=== PATIENT | male | born 1985 | race Caucasian/White ===

== ENCOUNTER → 2019-04-18 | Outpatient (CLI) | payer BC ==
--- NOTE | 2019-04-18 16:10 | Diagnostic Imaging Report ---
INDICATION: Right ankle injury FINDINGS: Three views of the right ankle show a small accessory ossicle at the tip of the medial malleolus. There is no fracture or dislocation. Ankle mortise is preserved. IMPRESSION: Negative right ankle. Dictated by: Dictated on workstation # [id number]
== END ==
LOC: RAD FS 14:43
PROVIDERS: ATTEND Nurse Practitioner
DX: S99.911A Unspecified injury of right ankle, initial encounter (principal)
CPT/HCPCS: 73610

== ENCOUNTER → 2019-09-23 | Outpatient (CLI) | payer BC ==
[2019-09-23 10:12] LABS: ALANINE AMINOTRANSFERASE 24 U/L (0-55); ALBUMIN 4.1 GM/DL (3.2-4.5); ALKALINE PHOSPHATASE 70 U/L (40-136); BILIRUBIN,TOTAL 0.5 MG/DL (0.1-1.0); BUN/CREATININE RATIO 18; CARBON DIOXIDE 25 MMOL/L (21-32); CHLORIDE 100 MMOL/L (98-107); CREATININE SERUM 0.94 MG/DL (0.60-1.30); GFR ESTIMATED > 60; GLUCOSE 130 MG/DL (70-105); POTASSIUM 4.5 MMOL/L (3.6-5.0); SODIUM 139 MMOL/L (135-145); TOTAL PROTEIN 7.8 GM/DL (6.4-8.2)
[2019-09-23 11:34] LABS: CHOLESTEROL 133 MG/DL (< 200); HDL CHOLESTEROL 27 MG/DL (40-60); TRIGLYCERIDES 227 MG/DL (<150); VLDL CHOLESTEROL 45 MG/DL (5-40)
== END ==
LOC: LAB FS 09:01
PROVIDERS: ATTEND Family Medicine
DX: Z00.00 Encounter for general adult medical examination without abnormal findings (principal)
CPT/HCPCS: 36415; 80053; 80061; 84443

== ENCOUNTER → 2021-01-31 | Outpatient (CLI) | payer BC ==
[2021-01-31 09:27] LABS: CALCIUM 8.6 MG/DL (8.5-10.1); CREATININE SERUM 0.84 MG/DL (0.60-1.30); POTASSIUM 4.4 MMOL/L (3.6-5.0)
[2021-01-31 09:28] LABS: BILIRUBIN,TOTAL 0.5 MG/DL (0.1-1.0); TOTAL PROTEIN 7.5 GM/DL (6.4-8.2)
== END ==
LOC: LAB FS 08:10
PROVIDERS: ATTEND Family Medicine
DX: Z00.00 Encounter for general adult medical examination without abnormal findings (principal); E03.9 Hypothyroidism, unspecified
CPT/HCPCS: 36415; 80053; 80061; 84443

== ENCOUNTER → 2021-02-01 | Outpatient (CLI) | payer BC | LOC: LAB FS 11:23 | PROVIDERS: ATTEND Family Medicine | DX: R73.9 Hyperglycemia, unspecified (principal) | CPT/HCPCS: 36415; 83036 ==

== ENCOUNTER → 2021-10-30 | Outpatient (CLI) | payer BC ==
[2021-10-30 12:27] LABS: CREATININE SERUM 0.82 MG/DL (0.60-1.30); POTASSIUM 4.1 MMOL/L (3.6-5.0)
[2021-10-30 12:28] LABS: ALBUMIN 4.2 GM/DL (3.2-4.5); BILIRUBIN,TOTAL 0.5 MG/DL (0.1-1.0); CALCIUM 9.4 MG/DL (8.5-10.1); TOTAL PROTEIN 7.7 GM/DL (6.4-8.2)
== END ==
LOC: LAB FS 11:29
PROVIDERS: ATTEND Family Medicine
DX: E11.9 Type 2 diabetes mellitus without complications (principal); E78.2 Mixed hyperlipidemia; E03.9 Hypothyroidism, unspecified; E66.01 Morbid (severe) obesity due to excess calories
CPT/HCPCS: 36415; 80053; 80061; 83036; 84443

== ENCOUNTER → 2022-04-17 | Outpatient (CLI) | payer BC ==
[2022-04-17 10:38] LABS: BILIRUBIN,TOTAL 0.4 MG/DL (0.1-1.0); CALCIUM 8.9 MG/DL (8.5-10.1); CREATININE SERUM 0.89 MG/DL (0.60-1.30); POTASSIUM 4.2 MMOL/L (3.6-5.0); TOTAL PROTEIN 7.5 GM/DL (6.4-8.2)
== END ==
LOC: LAB FS 08:02
PROVIDERS: ATTEND Family Medicine
DX: E11.9 Type 2 diabetes mellitus without complications (principal); F90.0 Attention-deficit hyperactivity disorder, predominantly inattentive type; E03.9 Hypothyroidism, unspecified; I10 Essential (primary) hypertension
CPT/HCPCS: 36415; 80053; 80061; 83036

== ENCOUNTER → 2022-08-22 | Outpatient (CLI) | payer BC ==
[~2022-08-22] MED LIST: CATHETER FLUSH 10 ML SYR IV PRN; HOLD METFORMIN - RECEIVED CONTRAST 20 ML VIAL IV SCH; IOHEXOL 350 MG/ML 100 ML (OMNIPAQUE 350) VIAL IV ONE; NS 100 ML (IVPB) BAG IV ONE
--- NOTE | 2022-08-22 15:47 | Diagnostic Imaging Report ---
CT ABDOMEN/PELVIS W TECHNIQUE: Multiple contiguous axial images were obtained through the abdomen and pelvis after administration of intravenous contrast. All CT scans use one or more of the following dose optimizing techniques: Automated exposure control, MA and/or KvP adjustment based on patient size and exam type or iterative reconstruction. INDICATION: Left lower quadrant pain. COMPARISON: None available. FINDINGS: Lower chest: The lung bases are clear. No pericardial or pleural effusion. Peritoneum: No free intraperitoneal air or fluid. Liver and biliary system: The liver is normal. Cholecystectomy. No biliary duct dilatation. Spleen and Pancreas: Spleen is normal. The pancreas enhances normally without mass lesion or peripancreatic inflammatory changes. Adrenals: Normal. tract: The kidneys enhance normally without suspicious mass or obstruction. Urinary bladder is distended without wall thickening. Prostate is not enlarged. GI tract: Stomach is decompressed. No bowel obstruction. No diverticulitis or colitis. Sigmoid colon diverticulosis is present. There is a 2 x 1 cm area of fat attenuation with a rim of soft tissue and mild surrounding inflammation in the left lower quadrant between the colon and anterior abdominal wall. This appearance is most compatible with a small area of omental infarct. Vasculature and Lymph nodes: Normal caliber aorta. No abdominal or pelvic lymphadenopathy. Musculoskeletal: No concerning osseous lesion. IMPRESSION: 1. 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 This is idiopathic phenomenon and frequently associated with obesity. It can be a source of pain in general response to pain control with anti-inflammatories. 2. No diverticulitis or colitis. Dictated by: Dictated on workstation # [id number]
== END ==
LOC: RAD FS 14:10
PROVIDERS: ATTEND Registered Nurse Emergency
DX: R10.32 Left lower quadrant pain (principal)
CPT/HCPCS: 74177; Q9967

== ENCOUNTER 2022-10-09 07:05 | Day surgery (SDC) | payer BC ==
[~2022-10-09] VITALS: Ht 175 cm; Wt 145.0 kg
[2022-10-09] VITALS (12 sets, daily range): BP systolic 112–131; BP diastolic 50–82
[2022-10-09] MEDS ORDERED: NS IV 1000 ML 1,000 ML IV STA (07:16)
[2022-10-09] MEDS ORDERED: fentaNYL INJ 100 MCG/2 ML AMP IVP STA (07:16)
--- NOTE | 2022-10-09 07:16 | ED Abdominal Pain ---
General Stated Complaint: ABD PAIN YESTERDAY History of Present Illness Date Seen by Provider: Oct 09, 2022 Time Seen by Provider: 07:14 Initial Comments 37-year-old male presents with abdominal pain. Pain started yesterday morning around 3 AM had a couple episodes of vomiting. The pain yesterday was more tender periumbilical mid abdomen but then throughout the the day especially throughout the night last night and this morning is moved to the right lower quadrant. Reports that hurts if he walks, hits a bump driving or even taking a deep breath. No fevers, chills or diarrhea reported. Allergies and Home Medications Allergies Coded Allergies: No Known Drug Allergies (Unverified , 08/22/22) Patient Home Medication List Home Medication List Reviewed: Yes Review of Systems Review of Systems Constitutional: No chills EENTM: No Symptoms Reported Cardiovascular: No Symptoms Reported Gastrointestinal: Abdominal Pain, Nausea, Vomiting Genitourinary: No Symptoms Reported Musculoskeletal: no symptoms reported Skin: no symptoms reported Psychiatric/Neurological: No Symptoms Reported Physical Exam Vital Signs Vital Signs - First Documented 10/09/22 07:17 Temp 36.5 Pulse 114 Resp 16 B/P (MAP) 144/86 (105) Pulse Ox 100 O2 Delivery Room Air Capillary Refill : Height/Weight/BMI Height: '" Weight: lbs. oz. kg; BMI Method: General Appearance: WD/WN, no apparent distress Respiratory: lungs clear, normal breath sounds Cardiovascular: normal peripheral pulses, regular rate, rhythm Gastrointestinal: soft; No distended; rebound, tenderness Extremities: non-tender, normal inspection Neurologic/Psychiatric: alert, normal mood/affect, oriented x 3 Skin: normal color, warm/dry Progress/Results/Core Measures Results/Orders Lab Results Laboratory Tests Test 10/09/22 07:17 10/09/22 07:29 Range/Units White Blood Count 12.2 H 4.3-11.0 10^3/uL Red Blood Count 5.72 H 4.30-5.52 10^6/uL Hemoglobin 16.2 13.3-17.7 g/dL Hematocrit 49 40-54 % Mean Corpuscular Volume 85 80-99 fL Mean Corpuscular Hemoglobin 28 25-34 pg Mean Corpuscular Hemoglobin Concent 33 32-36 g/dL Red Cell Distribution Width 12.9 10.0-14.5 % Platelet Count 294 130-400 10^3/uL Mean Platelet Volume 8.8 L 9.0-12.2 fL Immature Granulocyte % (Auto) 0 % Neutrophils (%) (Auto) 77 H 42-75 % Lymphocytes (%) (Auto) 12 12-44 % Monocytes (%) (Auto) 10 0-12 % Eosinophils (%) (Auto) 0 0-10 % Basophils (%) (Auto) 0 0-10 % Neutrophils # (Auto) 9.3 H 1.8-7.8 10^3/uL Lymphocytes # (Auto) 1.5 1.0-4.0 10^3/uL Monocytes # (Auto) 1.3 H 0.0-1.0 10^3/uL Eosinophils # (Auto) 0.1 0.0-0.3 10^3/uL Basophils # (Auto) 0.0 0.0-0.1 10^3/uL Immature Granulocyte # (Auto) 0.1 0.0-0.1 10^3/uL Sodium Level 135 135-145 MMOL/L Potassium Level 4.1 3.6-5.0 MMOL/L Chloride Level 98 98-107 MMOL/L Carbon Dioxide Level 25 21-32 MMOL/L Anion Gap 12 5-14 MMOL/L Blood Urea Nitrogen 10 7-18 MG/DL Creatinine 0.90 0.60-1.30 MG/DL Estimat Glomerular Filtration Rate 114 BUN/Creatinine Ratio 11 Glucose Level 144 H 70-105 MG/DL Calcium Level 9.2 8.5-10.1 MG/DL Corrected Calcium 9.0 8.5-10.1 MG/DL Total Bilirubin 1.2 H 0.1-1.0 MG/DL Aspartate Amino Transf (AST/SGOT) 19 5-34 U/L Alanine Aminotransferase (ALT/SGPT) 26 0-55 U/L Alkaline Phosphatase 57 40-136 U/L C-Reactive Protein 3.85 H <0.50 MG/DL Total Protein 8.1 6.4-8.2 GM/DL Albumin 4.3 3.2-4.5 GM/DL Urine Color YELLOW Urine Clarity CLEAR Urine pH 5.5 5-9 Urine Specific [place] 1.025 H 1.016-1.022 Urine Protein NEGATIVE NEGATIVE Urine Glucose (UA) 3+ H NEGATIVE Urine Ketones TRACE H NEGATIVE Urine Nitrite NEGATIVE NEGATIVE Urine Bilirubin NEGATIVE NEGATIVE Urine Urobilinogen 0.2 < = 1.0 MG/DL Urine Leukocyte Esterase NEGATIVE NEGATIVE Urine RBC (Auto) NEGATIVE NEGATIVE Urine RBC NONE /HPF Urine WBC RARE /HPF Urine Squamous Epithelial Cells 0-2 /HPF Urine Crystals NONE /LPF Urine Bacteria TRACE /HPF Urine Casts NONE /LPF Urine Mucus SMALL H /LPF Urine Culture Indicated NO My Orders Orders - EVANS,ANUSHKA L DO Cbc With Automated Diff (10/09/22 07:16) Comprehensive Metabolic Panel (10/09/22 07:16) Ua Culture If Indicated (10/09/22 07:16) Crp Fs (10/09/22 07:16) Ct Abdomen/Pelvis W (10/09/22 07:16) Ondansetron Injection (Zofran Injectio (10/09/22 07:30) Ns Iv 1000 Ml (Sodium Chloride 0.9%) (10/09/22 07:16) Fentanyl Inj (Sublimaze Injection) (10/09/22 07:16) Iohexol Injection (Omnipaque 350 Mg/Ml 1 (10/09/22 08:00) Received Contrast (Hold Metformin- Contr (10/09/22 08:00) Iohexol Injection (Omnipaque 350 Mg/Ml 1 (10/09/22 08:00) Received Contrast (Hold Metformin- Contr (10/09/22 08:00) Ns (Ivpb) (Sodium Chloride 0.9% Ivpb Bag (10/09/22 08:00) Medications Given in ED Current Medications Medications Dose Ordered Sig/Renaldo Route Start Time Stop Time Status Last Admin Dose Admin Iohexol 100 ml ONCE ONCE IV 10/09/22 08:00 10/09/22 08:01 DC 10/09/22 08:00 100 ML Ondansetron HCl 4 mg ONCE ONCE IVP 10/09/22 07:30 10/09/22 07:31 DC 10/09/22 07:25 4 MG Sodium Chloride 100 ml ONCE ONCE IV 10/09/22 08:00 10/09/22 08:01 DC 10/09/22 08:02 100 ML Vital Signs/I&O 10/09/22 07:17 Temp 36.5 Pulse 114 Resp 16 B/P (MAP) 144/86 (105) Pulse Ox 100 O2 Delivery Room Air Progress Progress Note : Progress Note Diagnostic studies were ordered reviewed and interpreted by me. Patient's labs shows elevated white count elevated CRP. Patient's CT exam was reviewed with initial interpretation of an acute appendicitis by me. Final interpretation per radiology report. Called and discussed patient's labs and radiology findings with Dr. Calle, general surgery. Patient to be transferred to [facility] same-day surgery for definitive care. Patient will go via private vehicle. Diagnostic Imaging Diagonstic Imaging: CT Plain Films/CT/US/NM/MRI: abdomen, pelvis Comments Date of Exam:10/09/22 CT ABDOMEN/PELVIS W INDICATION: Right lower quadrant abdominal pain TECHNIQUE: Multiple contiguous axial images were obtained through the abdomen and pelvis after administration of intravenous contrast. Auto Exposure Controls were utilized during the CT exam to meet ALARA standards for radiation dose reduction. All CT scans use one or more of the following dose optimizing techniques: automated exposure control, MA and/or KvP adjustment based on patient size and exam type or iterative reconstruction. Comparison made to 08/22/2022. The visualized portions of the lung bases are clear. There were no pleural fluid collections. There is no free intraperitoneal air. The liver shows mild low-density change compatible with fatty infiltration. There is no focal liver lesion. Gallbladder is surgically absent. There is no biliary dilatation. The spleen, adrenals, and pancreas are normal. Kidneys bilaterally are unremarkable. There is no retroperitoneal mass or adenopathy. There is no ascites or abscess. There are a few uncomplicated colonic diverticuli. Previous area of edema in the left lower quadrant omentum seen on 08/22/2022 has resolved. There is thickening and dilatation of the appendix with fat stranding in the periappendiceal fat, compatible with acute appendicitis. The appendix measures about 1.3 cm in diameter. There is edema in the periappendiceal fat but no evidence of discrete abscess. Impression: Findings compatible with acute appendicitis with thickened appendix with edema in the periappendiceal fat. There is no discrete abscess. Incidental finding of fatty infiltration of liver. There is postoperative change with prior cholecystectomy. Reviewed: Reviewed by Me (Acute appendicitis), Reviewed/Discussed Departure Impression Primary Impression: Appendicitis Qualified Codes: K35.30 - Acute appendicitis with localized peritonitis, without perforation or gangrene Disposition: 30 STILL A PATIENT Condition: Stable Admissions Decision to Admit Reason: Admit from ER (General) Decision to Admit/Date: Oct 09, 2022 Time/Decision to Admit Time: 08:16 Departure-Patient Inst. Referrals: JUANA ABDALLA MD (PCP) Primary Care Physician ANUSHKA EVANS DO Oct 09, 2022 07:16
[2022-10-09 07:28] LABS: BASOPHILS % (AUTO) 0 % (0-10); EOSINOPHILS # (AUTO) 0.1 10^3/uL (0.0-0.3); EOSINOPHILS % (AUTO) 0 % (0-10); HEMATOCRIT 49 % (40-54); HEMOGLOBIN 16.2 g/dL (13.3-17.7); LYMPHOCYTES # (AUTO) 1.5 10^3/uL (1.0-4.0); LYMPHOCYTES % (AUTO) 12 % (12-44); MEAN CORPUSCULAR HEMOGLOBIN 28 pg (25-34); MEAN CORPUSCULAR HGB CONC 33 g/dL (32-36); MEAN CORPUSCULAR VOLUME 85 fL (80-99); MEAN PLATELET VOLUME 8.8 fL (9.0-12.2); MONOCYTES # (AUTO) 1.3 10^3/uL (0.0-1.0); MONOCYTES % (AUTO) 10 % (0-12); NEUTROPHILS # (AUTO) 9.3 10^3/uL (1.8-7.8); NEUTROPHILS % (AUTO) 77 % (42-75); PLATELET COUNT 294 10^3/uL (130-400); WHITE BLOOD COUNT 12.2 10^3/uL (4.3-11.0)
[2022-10-09] MEDS ORDERED: ONDANSETRON 4 MG/2 ML (SDV) Z0FRAN IVP ONE (07:30)
[2022-10-09 07:34] LABS: BILIRUBIN,URINE NEGATIVE (NEGATIVE); CLARITY,URINE CLEAR; COLOR,URINE YELLOW; GLUCOSE, URINE (UA) 3+ (NEGATIVE); KETONES,URINE TRACE (NEGATIVE); LEUKOCYTE ESTERASE ,URINE NEGATIVE (NEGATIVE); NITRITE,URINE NEGATIVE (NEGATIVE); PH,URINE 5.5 (5-9); PROTEIN,URINE NEGATIVE (NEGATIVE)
[2022-10-09 07:41] LABS: BACTERIA,URINE TRACE /HPF; SQUAMOUS EPITHELIAL CELL,UR 0-2 /HPF; WBC,URINE RARE /HPF
[2022-10-09 07:48] LABS: ALBUMIN 4.3 GM/DL (3.2-4.5); BILIRUBIN,TOTAL 1.2 MG/DL (0.1-1.0); CALCIUM 9.2 MG/DL (8.5-10.1); CREATININE SERUM 0.9 MG/DL (0.60-1.30); POTASSIUM 4.1 MMOL/L (3.6-5.0); TOTAL PROTEIN 8.1 GM/DL (6.4-8.2)
[2022-10-09] MEDS ORDERED: IOHEXOL 350 MG/ML 100 ML (OMNIPAQUE 350) VIAL IV ONE ×2 (08:00)
[2022-10-09] MEDS ORDERED: NS 100 ML (IVPB) BAG IV ONE (08:00)
[2022-10-09] MEDS ORDERED: HOLD METFORMIN - RECEIVED CONTRAST 20 ML VIAL IV SCH ×2 (08:00)
--- NOTE | 2022-10-09 08:32 | Diagnostic Imaging Report ---
INDICATION: Right lower quadrant abdominal pain TECHNIQUE: Multiple contiguous axial images were obtained through the abdomen and pelvis after administration of intravenous contrast. Auto Exposure Controls were utilized during the CT exam to meet ALARA standards for radiation dose reduction. All CT scans use one or more of the following dose optimizing techniques: automated exposure control, MA and/or KvP adjustment based on patient size and exam type or iterative reconstruction. Comparison made to 08/22/2022. The visualized portions of the lung bases are clear. There were no pleural fluid collections. There is no free intraperitoneal air. The liver shows mild low-density change compatible with fatty infiltration. There is no focal liver lesion. Gallbladder is surgically absent. There is no biliary dilatation. The spleen, adrenals, and pancreas are normal. Kidneys bilaterally are unremarkable. There is no retroperitoneal mass or adenopathy. There is no ascites or abscess. There are a few uncomplicated colonic diverticuli. Previous area of edema in the left lower quadrant omentum seen on 08/22/2022 has resolved. There is thickening and dilatation of the appendix with fat stranding in the periappendiceal fat, compatible with acute appendicitis. The appendix measures about 1.3 cm in diameter. There is edema in the periappendiceal fat but no evidence of discrete abscess. Impression: Findings compatible with acute appendicitis with thickened appendix with edema in the periappendiceal fat. There is no discrete abscess. Incidental finding of fatty infiltration of liver. There is postoperative change with prior cholecystectomy. Dictated by: Dictated on workstation # [id number]
[2022-10-09] MEDS ORDERED: LIDOCAINE/EPI 1%-1:100,000 (XYLOCAINE) 20ML ONE (09:29)
--- NOTE | 2022-10-09 09:47 | Consultation - Surgery ---
RYNE LUGO 10/09/22 0947: History of Present Illness History of Present Illness Patient Consulted On(jose/time) 10/09/22 09:40 Date Seen by Provider: Oct 09, 2022 Time Seen by Provider: 09:40 Reason for Visit: Appendicitis History of Present Illness Patient is a 37-year-old male with a history of non-insulin dependent T2DM, HTN, and hypothyroidism who presented initially to the ED in [place] with CC of abdominal pain this morning at approximately 7:00. The patient states that his pain started at 3:00 AM yesterday, and started as a mild periumbilical ache. He reports that around noon this pain shifted into the RUQ and felt more like a sharp stabbing pain. Throughout today and yesterday the patient reports having nausea and occasional vomiting, he is not currently having any nausea. After his symptoms continued to worsen, the patient decided to go to the [place] ED, where CT revealed that he had acute appendicits. The patient was then transferred to [facility] same day surgery for a laparascopic appendectomy scheduled for today. Allergies and Home Medications Allergies Coded Allergies: No Known Drug Allergies (Unverified , 08/22/22) Patient Home Medication List Home Medication List Reviewed: Yes Past Jtjbntl-Bxhoch-Ejvksr Hx Patient Social History Smoking Status: Never a Smoker Alcohol Use?: Yes (states maybe 1 drink a week) Have you traveled recently?: No Surgeries History of Surgeries: Yes Surgeries: Gallbladder, Vasectomy Respiratory History of Respiratory Disorde: No Cardiovascular History of Cardiac Disorders: Yes Cardiac Disorders: Hypertension Neurological History of Neurological Disord: No Genitourinary History of Genitourinary Disor: No Gastrointestinal History of Gastrointestinal Di: No Musculoskeletal History of Musculoskeletal Dis: No Endocrine History of Endocrine Disorders: Yes Endocrine Disorders: Hypothyroidsim, Diabetes, Non-Insulin dep HEENT History of HEENT Disorders: No Cancer History of Cancer: No Psychosocial History of Psychiatric Problem: Yes Behavioral Health Disorders: ADD/ADHD Integumentary History of Skin or Integumenta: No Blood Transfusions History of Blood Disorders: No Family Medical History Significant Family History: No Pertinent Family Hx Family Medial History: Cardiovascular disease 19 FATHER 19 MOTHER Diabetes mellitus 19 FATHER 19 MOTHER Review of Systems-General Constitutional: No chills, No fever EENTM: No hearing loss, No blurred vision Respiratory: No cough, No short of breath Cardiovascular: No chest pain, No palpitations Gastrointestinal: RLQ, abdominal pain (RLQ), nausea (Currently controlled) Genitourinary: No dysuria, No hematuria Musculoskeletal: No back pain, No neck pain Skin: No change in color, No change in hair/nails Psychiatric/Neurological: Denies Numbness, Denies Weakness Physical Exam-General Problems Physical Exam Vital Signs Vital Signs - First Documented 10/09/22 07:17 Temp 36.5 Pulse 114 Resp 16 B/P (MAP) 144/86 (105) Pulse Ox 100 O2 Delivery Room Air Capillary Refill : Less Than 3 Seconds General Appearance: WD/WN, no apparent distress, obese Eyes: Bilateral Eye PERRL, Bilateral Eye EOMI HEENT: PERRL/EOMI Neck: non-tender, supple Respiratory: chest non-tender, lungs clear, normal breath sounds, no respiratory distress, no accessory muscle use Cardiovascular: normal peripheral pulses, regular rate, rhythm, no edema, no murmur Gastrointestinal: soft, no organomegaly, tenderness (RLQ) Rectal: deferred Back: no CVA tenderness, no vertebral tenderness Extremities: non-tender, no pedal edema, no calf tenderness, normal capillary refill Neurologic/Psychiatric: alert, normal mood/affect, oriented x 3 Skin: normal color, warm/dry Lymphatic: no adenopathy (cervical) Data Review Labs Laboratory Tests 10/09/22 07:17: White Blood Count 12.2H, Red Blood Count 5.72H, Hemoglobin 16.2, Hematocrit 49, Mean Corpuscular Volume 85, Mean Corpuscular Hemoglobin 28, Mean Corpuscular Hemoglobin Concent 33, Red Cell Distribution Width 12.9, Platelet Count 294, Mean Platelet Volume 8.8L, Immature Granulocyte % (Auto) 0, Neutrophils (%) (Auto) 77H, Lymphocytes (%) (Auto) 12, Monocytes (%) (Auto) 10, Eosinophils (%) (Auto) 0, Basophils (%) (Auto) 0, Neutrophils # (Auto) 9.3H, Lymphocytes # (Auto) 1.5, Monocytes # (Auto) 1.3H, Eosinophils # (Auto) 0.1, Basophils # (Auto) 0.0, Immature Granulocyte # (Auto) 0.1, Sodium Level 135, Potassium Level 4.1, Chloride Level 98, Carbon Dioxide Level 25, Anion Gap 12, Blood Urea Nitrogen 10, Creatinine 0.90, Estimat Glomerular Filtration Rate 114, BUN/Creatinine Ratio 11, Glucose Level 144H, Calcium Level 9.2, Corrected Calcium 9.0, Total Bilirubin 1.2H, Aspartate Amino Transf (AST/SGOT) 19, Alanine Aminotransferase (ALT/SGPT) 26, Alkaline Phosphatase 57, C-Reactive Protein 3.85H, Total Protein 8.1, Albumin 4.3 10/09/22 07:29: Urine Color YELLOW, Urine Clarity CLEAR, Urine pH 5.5, Urine Specific [place] 1.025H, Urine Protein NEGATIVE, Urine Glucose (UA) 3+H, Urine Ketones TRACEH, Urine Nitrite NEGATIVE, Urine Bilirubin NEGATIVE, Urine Urobilinogen 0.2, Urine Leukocyte Esterase NEGATIVE, Urine RBC (Auto) NEGATIVE, Urine RBC NONE, Urine WBC RARE, Urine Squamous Epithelial Cells 0-2, Urine Crystals NONE, Urine Bacteria TRACE, Urine Casts NONE, Urine Mucus SMALLH, Urine Culture Indicated NO 10/09/22 09:36: Glucometer 145H Assessment/Plan Assessment/Plan Assessment/Plan Appendicitis Patient is scheduled to undergo laparascopic appendectomy today Currently NPO Continue pain management Obesity: counseled on benefits of weight loss ROXANA PACK DO 10/09/22 1012: History of Present Illness History of Present Illness Time Seen by Provider: 09:31 History of Present Illness Surgery asked to consult regarding appendicitis. Pts states pat started at 3am yesterday, in the umbilical area and then by noon yesterday had moved down into the RLQ. Pain is ok now, controlled. Allergies and Home Medications Allergies Coded Allergies: No Known Drug Allergies (Unverified , 08/22/22) Patient Home Medication List Home Medication List Reviewed: Yes Past Aprfnqg-Ljmjcc-Ntxnpx Hx Patient Social History Smoking Status: Never a Smoker Alcohol Use?: Yes (states maybe 1 drink a week) Surgeries History of Surgeries: Yes Surgeries: Gallbladder, Vasectomy Respiratory History of Respiratory Disorde: No Cardiovascular History of Cardiac Disorders: Yes Cardiac Disorders: Hypertension Neurological History of Neurological Disord: No Genitourinary History of Genitourinary Disor: No Gastrointestinal History of Gastrointestinal Di: No Musculoskeletal History of Musculoskeletal Dis: No Endocrine History of Endocrine Disorders: Yes Endocrine Disorders: Hypothyroidsim, Diabetes, Non-Insulin dep HEENT History of HEENT Disorders: No Cancer History of Cancer: No Psychosocial History of Psychiatric Problem: Yes Behavioral Health Disorders: ADD/ADHD Integumentary History of Skin or Integumenta: No Blood Transfusions History of Blood Disorders: No Family Medical History Significant Family History: Diabetes, Hypertension Family Medial History: Cardiovascular disease 19 FATHER 19 MOTHER Diabetes mellitus 19 FATHER 19 MOTHER Review of Systems-General Constitutional: No chills, No fever EENTM: No hearing loss, No blurred vision Respiratory: No cough, No short of breath Cardiovascular: No chest pain, No palpitations Gastrointestinal: RLQ, abdominal pain (RLQ), nausea (Currently controlled); No vomiting Genitourinary: No dysuria, No hematuria Musculoskeletal: No back pain, No neck pain Skin: No change in color, No change in hair/nails Psychiatric/Neurological: Denies Numbness, Denies Weakness Physical Exam-General Problems Physical Exam General Appearance: no apparent distress, obese Eyes: Bilateral Eye PERRL, Bilateral Eye EOMI HEENT: pharynx normal; No scleral icterus (R), No scleral icterus (L) Neck: non-tender, supple Respiratory: chest non-tender, lungs clear, normal breath sounds, no respiratory distress, no accessory muscle use Cardiovascular: regular rate, rhythm, no murmur Gastrointestinal: soft, no organomegaly, tenderness (RLQ), hernia (small umbilical) Rectal: deferred Back: no CVA tenderness, no vertebral tenderness Extremities: non-tender, no pedal edema, no calf tenderness, normal capillary refill Neurologic/Psychiatric: alert, normal mood/affect, oriented x 3 Skin: normal color, warm/dry Lymphatic: no adenopathy (neck, axilla or groin) Data Review Radiology Date of Exam:10/09/22 CT ABDOMEN/PELVIS W INDICATION: Right lower quadrant abdominal pain TECHNIQUE: Multiple contiguous axial images were obtained through the abdomen and pelvis after administration of intravenous contrast. Auto Exposure Controls were utilized during the CT exam to meet ALARA standards for radiation dose reduction. All CT scans use one or more of the following dose optimizing techniques: automated exposure control, MA and/or KvP adjustment based on patient size and exam type or iterative reconstruction. Comparison made to 08/22/2022. The visualized portions of the lung bases are clear. There were no pleural fluid collections. There is no free intraperitoneal air. The liver shows mild low-density change compatible with fatty infiltration. There is no focal liver lesion. Gallbladder is surgically absent. There is no biliary dilatation. The spleen, adrenals, and pancreas are normal. Kidneys bilaterally are unremarkable. There is no retroperitoneal mass or adenopathy. There is no ascites or abscess. There are a few uncomplicated colonic diverticuli. Previous area of edema in the left lower quadrant omentum seen on 08/22/2022 has resolved. There is thickening and dilatation of the appendix with fat stranding in the periappendiceal fat, compatible with acute appendicitis. The appendix measures about 1.3 cm in diameter. There is edema in the periappendiceal fat but no evidence of discrete abscess. Impression: Findings compatible with acute appendicitis with thickened appendix with edema in the periappendiceal fat. There is no discrete abscess. Incidental finding of fatty infiltration of liver. There is postoperative change with prior cholecystectomy. Dictated by: Dictated on workstation # [id number] Dict: 10/09/22 0809 Trans: 10/09/22 0859 [facility] [id number] Interpreted by: WILBERT SILVA MD Electronically signed by: WILBERT SILVA MD 10/09/22 0859 Assessment/Plan Assessment/Plan Assessment/Plan Acute appendicitis I reviewed the CT myself and discussed case with Dr. Dill. Pt has appendicitis and needs an appendectomy. I talked to pt regarding the procedure and went over risks and complications; not limited to pain, bleeding, infection, scar, damage to bowel and need for further procedure. All questions answered to pt and his 's satisfaction. IV fluids, will get preop ABX. Supervisory-Addendum Brief Verification & Attestation Participated in pt care: history, MDM, physical Personally performed: exam, history, MDM, supervision of care Care discussed with: Medical Student Procedures: n/a Verification and Attestation of Medical Student E/M Service A medical student performed and documented this service. I then reviewed and verified all information documented by the medical student and made modifications to such information, when appropriate. I personally performed a physical exam, medical decision making and then discussed any differences between the notes and made revisions as necessary to create one note. Roxana Pack , 10/09/22 , 10:12 RYNE LUGO Oct 09, 2022 09:47 ROXANA PACK DO Oct 09, 2022 10:12
[2022-10-09] MEDS ORDERED: MIDAZOLAM 2 MG/2 ML (VERSED) VIAL ONE (10:03)
[2022-10-09] MEDS ORDERED: ONDANSETRON 4 MG/2 ML (SDV) Z0FRAN ONE (10:03)
[2022-10-09] MEDS ORDERED: GLYCOPYRROLATE 0.2 MG/ML (ROBINUL) 2 ML VIAL ONE (10:03)
[2022-10-09] MEDS ORDERED: LIDOCAINE PF 2% 5 ML (XYLOCAINE) VIAL ONE (10:03)
[2022-10-09] MEDS ORDERED: fentaNYL INJ 100 MCG/2 ML AMP ONE ×2 (10:03→11:13)
[2022-10-09] MEDS ORDERED: proPOfol 200 MG/20 ML (DIPRIVAN) VIAL IV ONE (10:03)
[2022-10-09] MEDS ORDERED: NEOSTIGMINE (BLOXIVERZ ) 1 MG/1ML 10 ML VIAL ONE (10:05)
[2022-10-09] MEDS ORDERED: ROCURONIUM 50 MG/5 ML (ZEMURON) VIAL IV ONE (10:05)
[2022-10-09] MEDS ORDERED: LACTATED RINGERS 1,000 ML IV PRN (10:15)
[2022-10-09] MEDS ORDERED: ceFAZolin INJECTION 3,000 MG in NS (IVPB) 100 ML IV ONE (10:15)
--- NOTE | 2022-10-09 11:07 | Progress Note-Post Operative ---
Post-Operative Progess Note Surgeon (s)/Slackman (s) Surgeon ROXANA PACK DO Slackman: PRETTY Orellana Pre-Operative Diagnosis Acute appy Post-Operative Diagnosis same Procedure & Operative Findings Date of Procedure 10/09/22 Procedure Performed/Findings PROCEDURE: Laparoscopic appendectomy. COMPLICATIONS: None. INDICATIONS: The patient is a 37 year old male who has been having right lower quadrant abdominal pain. Patient's exam consistent with appendicitis. I discussed risk and benefits of laparoscopic appendectomy and all indicated procedures with the possibility being a normal appendix. The patient understands the risks and benefits and wishes to proceed. Consent was signed on the chart. DESCRIPTION OF PROCEDURE: The patient was taken to the operating suite, prepped and draped in a sterile fashion. Timeout was performed. Local anesthetic was infiltrated just above the umbilicus and 11- blade scalpel was used to make a skin incision. Cautery was used to dissect down to the fascia and scored. Kochers were used to grasp and elevate it and the abdomen was then entered. A 0 Vicryl was placed in a figure- of-eight fashion for closure at the end of the case. The balloon trocar was inserted into the abdomen and pneumoperitoneum was achieved. Under direct visualization of the laparoscope, a 5 mm trocar was placed in the suprapubic region and a 5 mm trocar was placed in the left lower quadrant. Appendix was located, inflamed but not perforated. Using the Ligasure to come across the mesoappendix and the appendiceal artery until appendix was only attached to the cecum. Could see it was well away fromt the terminal ileum. Once at the base an Endo-SALLY 2.5 stapler was then fired across the base and it was then placed in an Endobag and removed through the 12 mm trocar site. The abdomen was then irrigated and suctioned. No other pathology noted. The abdomen was then desufflated and the trocars were removed. The 0 Vicryl placed at the beginning of the case was then tied closing the 12 mm fascial defect. The skin was then closed using 4-0 Monocryl in a subcut icular fashion. The abdomen was then washed and dried and Skin Affix was placed over the incisions. The patient tolerated the procedure well without any complications and was taken to the recovery room in stable condition. Anesthesia Type GET Estimated Blood Loss Estimated blood loss (mL): scant Specimens/Packing Specimens Removed ROXANA Navarrete DO Oct 09, 2022 11:07
[2022-10-09] MEDS ORDERED: ACHYD1T PO (11:08)
--- NOTE | 2022-10-09 11:10 | Discharge Inst-Surgical ---
Discharge Inst-Surgical Depart Medication/Instructions New, Converted or Re-Newed RX: Transmitted to Pharmacy Patient Instructions Follow up Appt: Make appointment for 1 week. [phone] Instructions: No lifting greater than 20 pounds. No strenuous activity. May shower in 24 hours, no tub bath or soaking. Use incentive spirometer at home as directed. No Smoking Skin/Wound Care: May remove bandages in am. You need to leave the Dermabond on incision it will fall off on it's own. Symptoms to Report: Appetite Changes, Extremity Discoloration, Numbness/Tingling, Swelling Increased, Bleeding Excessive, Eyesight Changes, Pain Increased, Urine Color Change, Constipation(Persistent), Fever over 101 degree F, Pain/Pressure in chest, Urinating Difficulty, Cough Up/Vomit Blood, Heart Beat Irreg/Pounding, Pain/Pressure in jaw, Cramps in feet or legs, Lightheadedness, Pain/Pressure in shoulder, Diarrhea(Persistent), Memory Changes Suddenly, Questions/Concerns, Weight gain consecutive days, Dizziness/Fainting, Nausea/Vomiting, Shortness of Breath, Weight gain over 2 pounds If questions or concerns contact your physician Or seek help at emergency department. Activity Activity as Tolerated: Yes Activity Instructions: Avoid Stress to Incision Driving Instructions: No Driving/Refer to (while taking pain meds and if can't complete all actions required to drive (braking and swerving)) Diet Discharge Diet: No Restrictions Diet After 24 Hours: Clear Liquid if Nauseous If Any Problems/Questions/Issu: Contact Your Physician, Go to Emergency Room Skin/Wound Care Infection Signs and Symptoms: Increased Redness, Foul Odor of Wound, Increased Drainage, Skin Itchy or Has a Rash, Increased Swelling, Temperature Above 101 F Wound Care Comment: heating pad to shoulder or neck tonight for pain Bathing Instructions: Shower Stitches/Nicky/Dermabond Dis: Dermabond Ice Pack: Ice On and Off Site ROXANA PACK DO Oct 09, 2022 11:09
[2022-10-09] MEDS ORDERED: morphine INJ 10 MG/ML 1ML (SYR OR VIAL) IVP ONE (11:30)
[2022-10-09] MEDS ORDERED: ONDANSETRON 4 MG/2 ML (SDV) Z0FRAN IVP PRN (11:30)
[2022-10-09] MEDS ORDERED: HYDROmorphone 2 MG/ML VIAL (DILAUDID) IV ONE (11:30)
[2022-10-09] MEDS ORDERED: METF-399 PO (11:55)
[2022-10-09] MEDS ORDERED: HYDR25TA4 PO (11:57)
[2022-10-09] MEDS ORDERED: LEVO13CA4 PO (11:57)
[2022-10-09] MEDS ORDERED: EMPA10TA PO (11:57)
--- NOTE | 2022-10-09 12:32 | Anesthesia-General Post-Op ---
General Patient Condition Mental Status/LOC: Same as Preop Cardiovascular: Satisfactory Nausea/Vomiting: Absent Respiratory: Satisfactory Pain: Controlled Complications: Absent Post Op Complications Complications None Follow Up Care/Instructions Patient Instructions None needed. Anesthesia/Patient Condition Patient Condition Patient is doing well, no complaints, stable vital signs, no apparent adverse anesthesia problems. No complications reported per nursing. YOLI LACKEY DO Oct 09, 2022 12:32
== END 2022-10-09 13:30 | disposition home or self-care (01) ==
LOC: EDUNIT# 07:05 → ER FS 07:08 → SDC 09:21
PROVIDERS: ATTEND Surgery
DX: K35.80 Unspecified acute appendicitis (principal); E66.01 Morbid (severe) obesity due to excess calories; Z68.42 Body mass index [BMI] 45.0-49.9, adult; E11.9 Type 2 diabetes mellitus without complications; Z79.84 Long term (current) use of oral hypoglycemic drugs; Z28.310 Unvaccinated for COVID-19
CPT/HCPCS: 36415; 74177; 80053; 81000; 82947; 85025; 86141; 87081; 96361; 96374; 96375

== ENCOUNTER 2023-05-10 23:16 | Emergency (ER) | payer BC ==
[~2023-05-10] VITALS: Ht 177.8 cm; Wt 149.7 kg
[~2023-05-10 23:16] MED LIST changes: +ACHYD1T PO; -CATHETER FLUSH 10 ML SYR IV PRN; +EMPA10TA PO; -HOLD METFORMIN - RECEIVED CONTRAST 20 ML VIAL IV SCH; +HYDR25TA4 PO; -IOHEXOL 350 MG/ML 100 ML (OMNIPAQUE 350) VIAL IV ONE; +LEVO13CA4 PO; +METF-399 PO; -NS 100 ML (IVPB) BAG IV ONE
--- NOTE | 2023-05-10 23:38 | ED Cardiac General ---
History of Present Illness General Stated Complaint: ANXIETY Source: patient History of Present Illness Date Seen by Provider: May 10, 2023 Time Seen by Provider: 23:21 Initial Comments 38-year-old male presenting with complaints of heart palpitations. He states that earlier this evening he was just sitting at the computer and felt like his heart started racing. When he looked down at his chest he could see his heart thumping against his chest. He felt like his heart was going very fast. This lasted for few seconds. He had another episode when he was laying down in bed. He became more concerned and woke up his significant other to come to the emergency department. He is overweight and has high blood pressure and diabetes as well as ADHD. He denies having a headache or any chest pain. He has had some mild nausea. He denies any actual vomiting. He has a family history of cardiac disease and was concerned that he had something going on with his heart. Timing/Duration: 1-3 hours Severity: moderate Prior CP/Workup: no prior chest pain, no prior cardiac workup NTG SL CUSTODIAL WORKER: No ASA po CUSTODIAL WORKER: No Associated Systoms: No Chest Pain, No Cough, No Diaphoresis, No Fever/Chills, No Headaches, No Loss of Appetite, No Malaise; Nausea/Vomiting (Nausea but no vomiting); No Rash, No Seizure, No Shortness of Air, No Syncope, No Weakness Allergies and Home Medications Allergies Coded Allergies: No Known Drug Allergies (Unverified , 08/22/22) Patient Home Medication List Home Medication List Reviewed: Yes Empagliflozin (Jardiance) Unknown Strength Tablet, Unknown Dose PO, (Reported) Entered as Reported by: Shani Coley on 10/09/22 1157 Hydrochlorothiazide (Hydrochlorothiazide) Unknown Strength Tablet, Unknown Dose PO, (Reported) Entered as Reported by: Shani Coley on 10/09/22 1157 Hydrocodone Bit/Acetaminophen (HYDROcodone/APAP 10/325 TABLET) 1 Ea Tab, 1 TAB PO Q6H Prescribed by: ROXANA PACK on 10/09/22 1112 Levothyroxine Sodium (Levothyroxine) Unknown Strength Capsule, Unknown Dose PO, (Reported) Entered as Reported by: Shani Coley on 10/09/22 1157 Metformin HCl (Metformin HCl) Unknown Strength Tablet, Unknown Dose PO, (Repor cele) Entered as Reported by: Shani Coley on 10/09/22 1155 Review of Systems Review of Systems Constitutional: No chills, No fever EENTM: No Symptoms Reported Respiratory: No Symptoms Reported Cardiovascular: See HPI, Palpitations Gastrointestinal: See HPI Genitourinary: No Symptoms Reported Musculoskeletal: no symptoms reported Skin: no symptoms reported Psychiatric/Neurological: Anxiety Past [id number] Hx Seasonal Allergies Seasonal Allergies: No Past Medical History Surgeries: Yes Gallbladder, Vasectomy Respiratory: No Currently Using CPAP: No Currently Using BIPAP: No Cardiac: Yes Hypertension Neurological: No Genitourinary: No Gastrointestinal: No Musculoskeletal: No Endocrine: Yes Hypothyroidsim, Diabetes, Non-Insulin dep HEENT: No Cancer: No Psychosocial: Yes ADD/ADHD Integumentary: No Blood Disorders: No Family Medical History Cardiovascular disease 19 FATHER 19 MOTHER Diabetes mellitus 19 FATHER 19 MOTHER Diabetes, Hypertension Physical Exam Vital Signs Vital Signs - First Documented 05/10/23 23:20 Temp 36.0 Pulse 94 Resp 18 B/P (MAP) 185/100 (128) Pulse Ox 97 O2 Delivery Room Air Capillary Refill : Height, Weight, BMI Height: '" Weight: lbs. oz. kg; 47.34 BMI Method: General Appearance: No Apparent Distress, Obese HEENT: PERRL/EOMI, Pharynx Normal Neck: Full Range of Motion, Normal Inspection, Non Tender, Supple Respiratory: Chest Non Tender, Lungs Clear, Normal Breath Sounds, No Accessory Muscle Use, No Respiratory Distress Cardiovascular: Regular Rate, Rhythm, Normal Peripheral Pulses Gastrointestinal: Normal Bowel Sounds, No Pulsatile Mass, Non Tender, Soft Rectal: Deferred Extremity: Normal Capillary Refill, Normal Inspection, No Calf Tenderness, No Pedal Edema Neurologic/Psychiatric: Alert, Oriented x3 Skin: Normal Color, Warm/Dry Progress/Results/Core Measures Results/Orders Lab Results Laboratory Tests Test 05/10/23 23:38 Range/Units White Blood Count 8.7 4.3-11.0 10^3/uL Red Blood Count 5.18 4.30-5.52 10^6/uL Hemoglobin 15.3 13.3-17.7 g/dL Hematocrit 45 40-54 % Mean Corpuscular Volume 86 80-99 fL Mean Corpuscular Hemoglobin 30 25-34 pg Mean Corpuscular Hemoglobin Concent 34 32-36 g/dL Red Cell Distribution Width 12.1 10.0-14.5 % Platelet Count 293 130-400 10^3/uL Mean Platelet Volume 8.7 L 9.0-12.2 fL Immature Granulocyte % (Auto) 1 % Neutrophils (%) (Auto) 47 42-75 % Lymphocytes (%) (Auto) 41 12-44 % Monocytes (%) (Auto) 8 0-12 % Eosinophils (%) (Auto) 3 0-10 % Basophils (%) (Auto) 1 0-10 % Neutrophils # (Auto) 4.1 1.8-7.8 10^3/uL Lymphocytes # (Auto) 3.5 1.0-4.0 10^3/uL Monocytes # (Auto) 0.7 0.0-1.0 10^3/uL Eosinophils # (Auto) 0.3 0.0-0.3 10^3/uL Basophils # (Auto) 0.1 0.0-0.1 10^3/uL Immature Granulocyte # (Auto) 0.0 0.0-0.1 10^3/uL Prothrombin Time 12.5 12.2-14.7 SEC INR Comment 0.9 0.8-1.4 Activated Partial Thromboplast Time 31 24-35 SEC Sodium Level 139 135-145 MMOL/L Potassium Level 3.6 3.6-5.0 MMOL/L Chloride Level 100 98-107 MMOL/L Carbon Dioxide Level 26 21-32 MMOL/L Anion Gap 13 5-14 MMOL/L Blood Urea Nitrogen 14 7-18 MG/DL Creatinine 0.91 0.60-1.30 MG/DL Estimat Glomerular Filtration Rate 111 BUN/Creatinine Ratio 15 Glucose Level 130 H 70-105 MG/DL Calcium Level 9.3 8.5-10.1 MG/DL Corrected Calcium 9.2 8.5-10.1 MG/DL Magnesium Level 1.9 1.6-2.4 MG/DL Total Bilirubin 0.4 0.1-1.0 MG/DL Aspartate Amino Transf (AST/SGOT) 24 5-34 U/L Alanine Aminotransferase (ALT/SGPT) 38 0-55 U/L Alkaline Phosphatase 94 40-136 U/L Troponin I < 0.30 <0.30 NG/ML Pro-B-Type Natriuretic Peptide < 36.0 <125.0 PG/ML Total Protein 7.6 6.4-8.2 GM/DL Albumin 4.1 3.2-4.5 GM/DL Lipase 29 8-78 U/L My Orders Orders - JOHNNY HARMAN MD Cbc And Automated Diff (05/10/23) Magnesium (05/10/23) Chest 1 View Ap/Pa Only (05/10/23) Ekg Tracing (05/10/23) Comprehensive Metabolic Panel (05/10/23) Protime With Inr (05/10/23) Partial Thromboplastin Time (05/10/23) O2 (05/10/23) Monitor-Rhythm Ecg Trace Only (05/10/23) Ed Iv/Invasive Line Start (05/10/23) Lipase (05/10/23) Troponin I Fs (05/10/23) Probnp Fs (05/10/23) Vital Signs/I&O 05/10/23 23:20 Temp 36.0 Pulse 94 Resp 18 B/P (MAP) 185/100 (128) Pulse Ox 97 O2 Delivery Room Air Progress Progress Note #1: Progress Note Differential diagnosis includes electrolyte imbalance, palpitations, arrhythmia, dehydration, hyperthyroid, hypothyroid. Establish peripheral IV access and send labs for complete blood count, comprehensive metabolic profile, magnesium, coagulation factors, troponin, proBNP, lipase. Placed on cardiac qa tester to evaluate his heart rate and rhythm. Obtain electrocardiogram to look for any acute ischemia. 1 view chest x-ray to look for acute pathology in the chest to contribute to palpitations. Counseled patient that he may require Holter monitor if we did not catch any palpitations or find any abnormalities with testing here in the ED. Progress Note #2: Time: 23:57 Progress Note Complete blood count showed white blood cell count 8.7. Normal hemoglobin of 15.3 and platelets of 293. On my personal review and interpretation is 1 view chest x-ray did not show any acute infiltrate, cardiomegaly, effusion. Electrocardiogram showed sinus rhythm without ischemia. Progress Note #3: Time: 00:26 Progress Note Comprehensive metabolic profile does not show any acute electrolyte abnormalities to account for his palpitations. The troponin was less than 0.3 and proBNP was not elevated. Magnesium was normal at 1.9. He had a negative lipase. He had no palpitations or arrhythmias on cardiac qa tester here in the ED. His blood pressure improved to 158/99 prior to discharge. Will encourage patient to follow-up with primary care provider for possible thyroid testing if he has not had recent testing of those levels as well as consideration for possible Holter monitor. Initial ECG Impression Date: May 10, 2023 Initial ECG Impression Time: 23:36 Initial ECG Rate: 85 Initial ECG Rhythm: Normal Sinus Initial ECG Comparisson: No Previous ECG Available Comment Electrocardiogram shows sinus rhythm, sinus arrhythmia at a rate of 85 bpm. [place] interval [address] elevation. QT interval 349 ms with a QTc interval 391 ms. There is no prior tracing available for comparison. Diagnostic Imaging Diagonstic Imaging: Xray Plain Films/CT/US/NM/MRI: chest Reviewed: Reviewed by Me Departure Impression Primary Impression: Heart palpitations Disposition: 01 HOME, SELF-CARE Condition: Stable Departure-Patient Inst. Decision time for Depature: 00:27 Referrals: JUANA ABDALLA MD (PCP) Primary Care Physician Patient Instructions: Palpitations ED Add. Discharge Instructions: Your blood work did not show any acute abnormality to account for the heart palpitations. Your salts or electrolytes in the blood were in normal ranges and you did not show any evidence of heart attack or heart damage. Check back with your primary care provider as they may need to repeat some thyroid testing if that has not been done recently. They also could set you up for a Holter monitor to try to watch her heart rate and rhythm over a longer period of time then what can be done in the emergency department. Make sure to stay well-hydrated and drink plenty of fluids. Avoid caffeinated and stimulating drinks as these can trigger palpitations as well. JOHNNY HARMAN MD May 10, 2023 23:38
[2023-05-10 23:48] LABS: BASOPHILS # (AUTO) 0.1 10^3/uL (0.0-0.1); BASOPHILS % (AUTO) 1 % (0-10); EOSINOPHILS # (AUTO) 0.3 10^3/uL (0.0-0.3); EOSINOPHILS % (AUTO) 3 % (0-10); HEMATOCRIT 45 % (40-54); HEMOGLOBIN 15.3 g/dL (13.3-17.7); LYMPHOCYTES # (AUTO) 3.5 10^3/uL (1.0-4.0); LYMPHOCYTES % (AUTO) 41 % (12-44); MEAN CORPUSCULAR HEMOGLOBIN 30 pg (25-34); MEAN CORPUSCULAR HGB CONC 34 g/dL (32-36); MEAN CORPUSCULAR VOLUME 86 fL (80-99); MEAN PLATELET VOLUME 8.7 fL (9.0-12.2); MONOCYTES # (AUTO) 0.7 10^3/uL (0.0-1.0); MONOCYTES % (AUTO) 8 % (0-12); NEUTROPHILS # (AUTO) 4.1 10^3/uL (1.8-7.8); NEUTROPHILS % (AUTO) 47 % (42-75); PLATELET COUNT 293 10^3/uL (130-400); WHITE BLOOD COUNT 8.7 10^3/uL (4.3-11.0)
[2023-05-11 00:01] LABS: INR 0.9 (0.8-1.4); PROTHROMBIN TIME PATIENT 12.5 SEC (12.2-14.7)
[2023-05-11 00:03] LABS: POTASSIUM 3.6 MMOL/L (3.6-5.0)
[2023-05-11 00:11] LABS: BUN/CREATININE RATIO 15; CARBON DIOXIDE 26 MMOL/L (21-32); CHLORIDE 100 MMOL/L (98-107); CREATININE SERUM 0.91 MG/DL (0.60-1.30); GFR ESTIMATED 111; SODIUM 139 MMOL/L (135-145)
[2023-05-11 00:12] LABS: ALANINE AMINOTRANSFERASE 38 U/L (0-55); ALBUMIN 4.1 GM/DL (3.2-4.5); ALKALINE PHOSPHATASE 94 U/L (40-136); BILIRUBIN,TOTAL 0.4 MG/DL (0.1-1.0); CALCIUM 9.3 MG/DL (8.5-10.1); GLUCOSE 130 MG/DL (70-105); LIPASE 29 U/L (8-78); MAGNESIUM 1.9 MG/DL (1.6-2.4); TOTAL PROTEIN 7.6 GM/DL (6.4-8.2)
[2023-05-11 00:37] VITALS: BP 148/94
--- NOTE | 2023-05-11 07:36 | Diagnostic Imaging Report ---
INDICATION: Cardiac palpitations and left chest pain. Single AP view of the chest is obtained. COMPARISON: No previous study is available for comparison at this time. FINDINGS: Heart size and pulmonary vasculature are within normal limits, and the lungs are clear, bilaterally. IMPRESSION: Unremarkable chest. Dictated by: Dictated on workstation # [id number]
== END 2023-05-11 00:37 | disposition home or self-care (01) ==
LOC: EDUNIT# 23:16 → ER FS 23:18
DX: R00.2 Palpitations (principal); E66.9 Obesity, unspecified; Z68.42 Body mass index [BMI] 45.0-49.9, adult; Z82.49 Family history of ischemic heart disease and other diseases of the circulatory system
CPT/HCPCS: 36415; 71045; 80053; 83690; 83735; 83880; 84484; 85025; 85610; 85730; 93005; 93041